=== PATIENT | female | born 1975 | race Caucasian/White ===

== ENCOUNTER → 2023-05-05 13:09 | Outpatient (REF) | payer BC, SELFPAY | LOC: DHCBC MAIN 13:09 | PROVIDERS: ATTENDING PHYSICIAN Internal Medicine Cardiovascular Disease; FAMILY PHYSICIAN Family Medicine | DX: I71.21 Aneurysm of the ascending aorta, without rupture (principal) | CPT/HCPCS: 93306 ==

== ENCOUNTER → 2023-05-15 07:46 | Outpatient (REF) | payer BC, SELFPAY | LOC: RAD 07:46 | PROVIDERS: ATTENDING PHYSICIAN Internal Medicine Critical Care Medicine; FAMILY PHYSICIAN Family Medicine | DX: R91.8 Other nonspecific abnormal finding of lung field (principal) | CPT/HCPCS: 71250 ==

== ENCOUNTER 2024-11-01 20:37 | Emergency (ER) | payer OTHER, SELFPAY ==
[2024-11-01 20:39] VITALS: BP 125/89
[2024-11-01 21:01] LABS: Hematocrit 42.5 % (37.0-47.0); Hemoglobin 15.2 g/dL (12.0-16.0); Mean Corp Hgb Conc. 35.8 g/dL (33.0-37.0); Mean Corpuscular Volume 89.3 fL (81.0-99.0); Nucleated Red Blood Cells % 0 %; Platelet Count 298 10^3/uL (130-400); Red Cell Dist. Width 11.7 % (11.5-14.5)
[2024-11-01 21:24] LABS: Troponin I < 0.012 ng/ml
[2024-11-01 21:30] LABS: ALT (SGPT) 21 U/L (0-35); AST (SGOT) 26 U/L (14-36); Albumin 5.1 g/dl (3.5-5.0); Alkaline Phosphatase 71 U/L (38-126); Blood Urea Nitrogen 16 mg/dl (7-17); Calcium 11.3 mg/dl (8.4-10.2); Carbon Dioxide 25 mmol/L (22-30); Chloride 100 mmol/L (98-107); Glucose 76 mg/dl (70-99); Potassium 5.8 mmol/L (3.5-5.1); Sodium 137 mmol/L (135-145); Total Protein 7.8 g/dl (6.3-8.2); eGFR > 60.00
[2024-11-01 22:00] VITALS: BP 117/87
--- NOTE | 2024-11-01 22:30 | ED.GENMED ---
History of Present Illness
General
Chief Complaint: Anxiety
Time Seen by Provider: 11/01/24 22:30
History of Present Illness
History of Present Illness:
FOCUSED PAST MEDICAL HISTORY
- The patient has a history of hypothyroidism
REVIEW OF OLD RECORDS
- The patient was seen here in 2021 his chest pain at that time troponin was also negative
Note:
CHIEF COMPLAINT(S)
Abdominal pain with intermittent chest pain.
PHYSICAL EXAM
- General: Well appearing in no distress, athletic build
- HEENT: Moist oral mucosa
- Cardiovascular: No murmurs, normal heart rate, regular rhythm, No chest wall tenderness
- Pulmonary: No respiratory distress, breath sounds are clear and equal
- Abdomen: Soft with no peritoneal signs, there is minimal diffuse abdominal tenderness
- Neurologic: Excellent strength all extremities, no coordination deficits
- Psychiatric: Appropriate mental status, normal insight and judgement, she appears somewhat anxious
- Extremities: Nontender, no edema, moves all extremities equally
- Skin: No rash, no lesions
HISTORY OF PRESENT ILLNESS
The patient is a 49-year-old female with a history of abdominal pain, which she describes as intermittent and sharp. The pain is located in the lower abdomen and has persisted more intensely over the weekend. Previously, she experienced similar pain
but states that its different this time; her stomach was not as distended as in past episodes. Additionally, earlier that evening, the patient reported sharp chest pain that began after a stressful day involving caregiving responsibilities for her
aging parents, which may have contributed to acute anxiety. The chest pain has since resolved. She denies taking any medications for these acute symptoms but has been taking fluoxetine for stress management for a couple of years. Further, she
reported chronic constipation issues for many years and mentioned trying linaclotide in the past without much relief. The patient was seen by a battery tester in the past but is not currently under active surveillance. Her potassium level was found to
be elevated (high 5.8 mmol/L), acknowledged as potentially significant but not dangerously high.
SOCIAL DETERMINANTS OF HEALTH
The patient reports a stressful home environment as she manages caregiving duties for her parents, both of whom have significant health issues. 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
PLAN
- Administer a one-time dose of sodium polystyrene sulfonate to address the slight elevation in potassium levels.
- Prescribe a short-acting anxiolytic such as lorazepam or alprazolam for acute anxiety episodes, advising against routine use to prevent dependency.
- Encourage follow-up with an outpatient cardiology service for ongoing monitoring.
- Offered and considered CT imaging of the abdomen pelvis however the patient does not feel this is necessary and her abdominal symptoms are subacute to chronic
DIFFERENTIAL DIAGNOSIS
The Differential Diagnosis includes, in no particular order and is not limited to:
- Irritable bowel syndrome
- Anxiety-induced chest pain
- Electrolyte imbalance
- Peptic ulcer disease
- Gastritis
- Gallbladder disease
- Esophageal spasm
- Cardiac arrhythmia
- Hiatal hernia
- Musculoskeletal chest pain
SUMMARY OF ENCOUNTER
The patient presented to the emergency department with abdominal discomfort and intermittent chest pain. Management included detailed assessment of the symptoms and addressing potential causes such as electrolyte imbalance and acute stress.
Potassium levels were incidentally noted to be elevated but not in a critical range. Anxiety was suspected as a contributor to her chest pain. A single dose of sodium polystyrene sulfonate was administered, and a short-acting anxiolytic was
prescribed. The patient was deemed stable for discharge after addressing her acute concerns.
DISPOSITION
Discharge to home.
MEDICAL DECISION MAKING
- Number and Complexity of Problems Addressed: Chronic conditions affecting care: Anxiety and Irritable Bowel Syndrome; Differential diagnosis list reviewed.
- Data:
- Category 1: External lab tests reviewed showed elevated potassium.
- Category 3: Consideration of Admission/Observation: Escalation of care including admission/observation was considered given the complexity and risk of the patients presenting complaint, exam findings, and/or their underlying comorbidities.
However, ultimately I feel the patient is safe for outpatient management with close follow up. Reasoning: Work-up reassuring, does not reveal any acute life/organ threatening processes, patients symptoms well controlled upon reevaluation,
reexamination is reassuring, vitals are stable, patient agreeable with discharge, reliable for follow-up.
- Risk: Prescription medication was managed with risk considerations (short-acting anxiolytics).
MEDICATION RECONCILIATION
- Prescribed a short-acting anxiolytic such as lorazepam or alprazolam for acute anxiety episodes.
- Administered sodium polystyrene sulfonate for high potassium level.
DIAGNOSIS
- Anxiety with chest pain
- Mild hyperkalemia
EKG
- Sinus 98, normal axis, no acute ST abnormality
LABS
- CBC normal, potassium high at 5.8, calcium somewhat high at 11.3, troponin less than 0.012
SUMMARY OF ENCOUNTER
The patient, a 49-year-old female, presented to the emergency department with abdominal pain and had experienced intermittent chest pain earlier. Her symptoms were assessed, and potential causes such as electrolyte imbalance and acute stress were
considered. The potassium levels were noted to be slightly elevated, prompting a one-time dose of sodium polystyrene sulfonate administration. Anxiety was suspected to have contributed to her chest pain, correlated with significant social stressors
from caregiving responsibilities. She is stable and safe for discharge with the recommended follow-up.
DISPOSITION
Discharge to home.
ASSESSMENT
Anxiety-related symptoms likely exacerbated by social stressors. Mild hyperkalemia was addressed.
EMERGENCY TREATMENTS ADMINISTERED
Sodium polystyrene sulfonate was administered to treat mild hyperkalemia.
PLAN
Administer sodium polystyrene sulfonate for elevated potassium. Prescribe a short-acting anxiolytic such as lorazepam or alprazolam to manage acute anxiety episodes. Encourage cardiology follow-up for ongoing monitoring.
MEDICATION RECONCILIATION
Prescribed lorazepam or alprazolam for anxiety management. Administered sodium polystyrene sulfonate for elevated potassium.
MEDICAL DECISION MAKING
- Number and Complexity of Problems Addressed: Chronic conditions affecting care include Anxiety and Irritable Bowel Syndrome. Differential Diagnosis includes Irritable bowel syndrome, Anxiety-induced chest pain, Electrolyte imbalance, Peptic ulcer
disease, Gastritis, Gallbladder disease, Esophageal spasm, Cardiac arrhythmia, Hiatal hernia, and Musculoskeletal chest pain.
- Data:
Category 1: Review of external lab test for potassium levels showed mild hyperkalemia.
- Risk: Prescription medication was managed with risk considerations. Consideration of Admission/Observation: Escalation of care including admission/observation was considered. However, the patient is safe for outpatient management with close
follow-up. Work-up was reassuring; there was no acute life-threatening condition identified at this time. The patient is stable and reliable for follow-up, with symptoms well-controlled upon reevaluation.
DIAGNOSIS
- Elevated potassium R79.89
- Anxiety F41.9
Past History
Past History
ED Past Medical History: Hypothyroidism
ED Past Surgical History: None
Social History
Tobacco: Non-smoker
Personal:
Employment: Employed
Phy Exam
Physical Exam
Physical Exam:
See HPI
Course
Orders/Labs/Results
Orders:
Orders
11/01/24 20:42
Electrocardiogram (*1) Urgent
Reason for Study: Chest Pain
EKG- Treatment ONCE
11/01/24 20:51
Complete Blood Count/With Diff Urgent
Comprehensive Metabolic Panel Urgent
Troponin I Urgent
11/01/24 23:04
Sodium Zirconium Cyclosilicate [Lokelma] 10 gram PO NOW STA
Abnormal Lab Results
11/01/24
20:51
MCH 31.9 H pg
(27.0-31.0)
Potassium 5.8 H mmol/L
(3.5-5.1)
Calcium 11.3 H mg/dl
(8.4-10.2)
Albumin 5.1 H g/dl
(3.5-5.0)
11/01/24 20:51
11/01/24 20:51
Vital Signs
Initial and Last Documented VS:
Initial Vital Signs
Temp Pulse Resp BP Pulse Ox
36.6 C 98 18 125/89 99
11/01/24 20:39 11/01/24 20:39 11/01/24 20:39 11/01/24 20:39 11/01/24 20:39
Last Documented Vital Signs
Temp Pulse Resp BP Pulse Ox
36.6 C 96 12 117/87 99
11/01/24 20:39 11/01/24 22:01 11/01/24 22:01 11/01/24 22:00 11/01/24 22:32
*Pulse Oximetry
SaO2: 99
Patient hypoxic: no
*Critical Care Note
Total Time (30-74mins, 75-104mins- exclusive of procedures): Not Applicable
ED Attending Note
-
Portions of this chart may have been created with voice recognition software.� Occasional wrong word or��sound alike� substitutions may have occurred due to the inherent limitations of voice recognition software.
Discharge Plan
Departure
Patient Disposition: Home (Routine Discharge)
Date of Disposition: 11/01/24
Time of Disposition: 23:04
Patient with high blood pressure during this ER visit?: Yes
Discharge Problem:
Anxiety
Instructions: Anxiety, Adult (DC), Chest Pain CBC Follow Up
Prescriptions:
New
alprazolam [Xanax] 0.5 mg tablet
0.5 - 1 mg PO HS PRN (Reason: anxiety) Qty: 10 0RF
No Action
Katharine
1 tab PO PRN PRN (Reason: as directed)
Nature's Thyroid
1 tab PO DAILY
Referrals:
NONE,* [Family Provider, Internal Medicine]
Activity Restrictions/Additional Instructions:
I did send a prescription for Xanax that you could use on an as-needed basis but I recommend using it only rarely and not every day as it does have high addiction potential if you end up taking it on a daily basis. Your white blood cell count is
normal. Your potassium level was somewhat high at 5.8 of uncertain etiology. We did give you a dose of Lokelma tonight. EKG is normal. Cardiac blood work shows no sign of heart attack. I recommend you follow-up with your battery tester as well.
Interventions
Interventions:
*Risk Screen - Suicide Last Done: 11/01/24 20:41
*General Assessment Last Done: 11/01/24 20:41
*Neglect/Abuse Screening Last Done: 11/01/24 20:41
ED- Cardiac Assessment Last Done: 11/01/24 22:08
ED-Psychological Assessment Last Done: 11/01/24 22:10
ED- Pulmonary Assessment Last Done: 11/01/24 22:08
Discharge Date and Time
Print Language: GREEK
[2024-11-01] MEDS: LOKELMA 10 GRAM PO (23:18)
[2024-11-01 23:19] VITALS: BP 117/89
== END 2024-11-01 23:20 | disposition home or self-care (01) ==
LOC: EMR 20:37
PROVIDERS: EMERGENCY PHYSICIAN Emergency Medicine
DX: F41.9 Anxiety disorder, unspecified (principal); R07.89 Other chest pain; E03.9 Hypothyroidism, unspecified; E87.5 Hyperkalemia
CPT/HCPCS: 99284; 80053; 84484; 85025; 93005